=== PATIENT | female | born 1965 | race Caucasian/White ===

== ENCOUNTER → 2018-10-31 | Outpatient (CLI) | payer SELFPAY ==
[~2018-10-31] MED LIST: AUGMENTIN 875875 MG PO; AZO-STANDARD95 MG PO; BACTRIM DS 8001 TA1 PO; IBU800 M1 PO; LIPITOR10 MG PO; METFORMIN500 MG PO; NORVASC5 MG PO; PRINIVIL20 MG PO
== END | disposition home or self-care (01) ==
LOC: RESCLI 08:56
DX: I10 Essential (primary) hypertension (principal); E11.9 Type 2 diabetes mellitus without complications; E78.5 Hyperlipidemia, unspecified; F17.200 Nicotine dependence, unspecified, uncomplicated; Z71.6 Tobacco abuse counseling; Z79.84 Long term (current) use of oral hypoglycemic drugs; Z79.899 Other long term (current) drug therapy; Z91.018 Allergy to other foods

== ENCOUNTER → 2019-06-04 | Outpatient (CLI) | payer SELFPAY | END | disposition home or self-care (01) | LOC: RESCLI 01:35 | DX: E78.5 Hyperlipidemia, unspecified (principal); E11.9 Type 2 diabetes mellitus without complications; I10 Essential (primary) hypertension; F17.210 Nicotine dependence, cigarettes, uncomplicated; Z71.6 Tobacco abuse counseling; Z79.899 Other long term (current) drug therapy ==

== ENCOUNTER 2019-08-02 16:02 | Inpatient (IN) | payer SELFPAY ==
[~2019-08-02] VITALS: Ht 177.8 cm; Wt 87.5 kg
[~2019-08-02 16:02] MED LIST changes: -LIPITOR10 MG PO; +PRAVACHOL40 MG PO; -PRINIVIL20 MG PO; +ZESTORETIC 20-1 EAC1 PO
[2019-08-02 16:05] VITALS: BP 128/64
[2019-08-02 16:40] LABS: BASO % 0.2 % (0.0-1.0); EOS # 0.2 10*3/uL (0.0-0.4); EOS % 1.1 % (1.0-4.0); HEMOGLOBIN 14.4 g/dl (12.0-16.0); LYMPH # 2.4 10*3/uL (1.3-4.4); LYMPH % 18.1 % (27.0-41.0); MEAN CELL VOLUME 87.1 fl (81.0-99.0); MEAN CORPUSCULAR HGB 29.9 pg (27.0-31.0); MEAN CORPUSCULAR HGB CONC 34.3 g/dl (33.0-37.0); MEAN PLATELET VOLUME 9.6 fl (9.6-12.3); MONO # 0.8 10*3/uL (0.1-1.0); MONO % 6.4 % (3.0-9.0); NEUT # 9.7 10*3/uL (2.3-7.9); NEUT % 73.7 % (47.0-73.0); PLATELET COUNT AUTOMATED 267 10*3/uL (130-400); RED BLOOD COUNT 4.82 10*6/uL (4.10-5.10); RED CELL DISTRI WIDTH 12.3 % (0-14.5); WHITE BLOOD COUNT 13.2 10*3/uL (4.8-10.8)
[2019-08-02 16:58] LABS: ALBUMIN 3.7 gm/dl (3.1-4.5); CREATININE 1.4 mg/dL (0.55-1.02); POTASSIUM 3.3 mmol/L (3.5-5.1); TOTAL PROTEIN 7.8 gm/dL (6.4-8.2)
[2019-08-02 18:14] LABS: BILIRUBIN NEGATIVE (NEGATIVE); BLOOD 2+ (NEGATIVE); CLARITY SL CLOUDY (CLEAR); COLOR YELLOW (YELLOW); GLUCOSE NEGATIVE (NEGATIVE); KETONE NEGATIVE (NEGATIVE); LEUKO ESTERASE NEGATIVE (NEGATIVE); NITRITE NEGATIVE (NEGATIVE); PH 5.5 (5.0-9.0); UROBILINOGEN 0.2 E.U./dl (0.2-1.0)
[2019-08-02 18:29] LABS: BACTERIA 1+; WBC 0-2 wbc/hpf (0-5)
[2019-08-02 20:00] VITALS: BP 137/62
[2019-08-02 21:00] VITALS: BP 137/62
--- NOTE | 2019-08-02 21:00 | NUR ---
Time: 2099 A 54 year old FEMALE admitted to 5E under services of UTE PASCAL DO. Pt. arrived via bed from ER. Chief complaint: COLITIS. SERGIO CHEN
--- NOTE | 2019-08-02 22:26 | NUR ---
DR. STEVEN CALLED AWARE PT MEDICATIONS ARE UPDATED IN EMAR.
--- NOTE | 2019-08-02 22:30 | NUR ---
RESTING IN BED. TOLERATING IV ANTIBIOTIC AND ALSO IVF. NO C/O AT THIS TIME. CALL LIGHT IN REACH.
[2019-08-03] VITALS: BP 122/67
--- NOTE | 2019-08-03 00:30 | NUR ---
RESTING IN BED. NO C/O AT THIS TIME. IVF INFUSING WITH NO PROBLEM. CALL LIGHT IN REACH. SEE SHIFT ASSESSMENT.
--- NOTE | 2019-08-03 05:26 | NUR ---
PT C/O HEADACHE, RATES PAIN 5 OR 6 ON PAIN SCALE 0-10. MEDICATED WITH NORCO PO PER PRN ORDER, SEE EMAR. CALL LIGHT IN REACH. [id number].
--- NOTE | 2019-08-03 06:24 | NUR ---
PT RESTING IN BED WITH EYES CLOSED. RESP-EASY AND REGULAR. MEDICATION SEEMS TO BE EFFECTIVE. CALL LIGHT IN REACH.
[2019-08-03 06:25] LABS: BASO % 0.4 % (0.0-1.0); EOS # 0.2 10*3/uL (0.0-0.4); EOS % 1.8 % (1.0-4.0); HEMATOCRIT 38.2 % (37.0-47.0); HEMOGLOBIN 12.9 g/dl (12.0-16.0); LYMPH # 2.6 10*3/uL (1.3-4.4); LYMPH % 25.7 % (27.0-41.0); MEAN CORPUSCULAR HGB 30.1 pg (27.0-31.0); MEAN CORPUSCULAR HGB CONC 33.8 g/dl (33.0-37.0); MEAN PLATELET VOLUME 9.7 fl (9.6-12.3); MONO # 0.7 10*3/uL (0.1-1.0); MONO % 6.5 % (3.0-9.0); NEUT # 6.6 10*3/uL (2.3-7.9); NEUT % 65.1 % (47.0-73.0); PLATELET COUNT AUTOMATED 238 10*3/uL (130-400); RED BLOOD COUNT 4.29 10*6/uL (4.10-5.10); RED CELL DISTRI WIDTH 12.3 % (0-14.5); WHITE BLOOD COUNT 10.1 10*3/uL (4.8-10.8)
[2019-08-03 06:47] LABS: BUN 21 mg/dl (7-24); CHLORIDE 103 mmol/L (98-107); CREATININE 0.99 mg/dL (0.55-1.02); POTASSIUM 3.1 mmol/L (3.5-5.1); SODIUM 137 mmol/L (136-145)
[2019-08-03 08:00] VITALS: BP 100/60
--- NOTE | 2019-08-03 11:49 | NUR ---
BSG 227. REFUSED INSULIN COVERAGE
[2019-08-03 12:00] VITALS: BP 121/61
--- NOTE | 2019-08-03 12:13 | NUR ---
CALLED . INFORMED THAT MED REC WAS COMPLETED AND MEDS FROM HOME NEED RE-ORDERED. SAID HE WOULD LOOK.
--- NOTE | 2019-08-03 13:39 | NUR ---
GIVEN HOME MEDS. IN HIS POSSESSION AND WILL TAKE HOME TODAY. THERE ARE NO HOME MEDS IN PHARMACY.
--- NOTE | 2019-08-03 14:02 | NUR ---
TOLERATING SOFT FOODS WELL. DENIES ABD NAUSEA, CRAMPING, PAIN. WILL CONTINUE TO MONITOR.
[2019-08-03 16:00] VITALS: BP 124/69
--- NOTE | 2019-08-03 19:05 | NUR ---
ARRIVED ON SHIFT, INTRODUCED TO PATIENT BEDSIDE REPORT RECEIVED, NO NEEDS VOICED AT THIS TIME, WHITE BOARD UPDATED.
[2019-08-03 20:00] VITALS: BP 112/63
--- NOTE | 2019-08-03 23:11 | NUR ---
24 HR chart check completed.
[2019-08-04] VITALS: BP 135/73
--- NOTE | 2019-08-04 01:40 | NUR ---
Patient sleeping. Respirations relaxed and easy. Siderails up X 2, CALL LIGHT WITHIN REACH, BED IN LOW POSITION WITH [place] ON. JOSELUIS IGLESIAS
[2019-08-04 06:24] LABS: BUN 12 mg/dl (7-24); CHLORIDE 106 mmol/L (98-107); CREATININE 0.76 mg/dL (0.55-1.02); POTASSIUM 3.5 mmol/L (3.5-5.1); SODIUM 138 mmol/L (136-145)
[2019-08-04 08:00] VITALS: BP 160/88
[2019-08-04] MEDS ORDERED: FLAGYL500 MG PO (10:03)
[2019-08-04] MEDS ORDERED: CIPRO500 MG PO (10:03)
--- NOTE | 2019-08-04 10:34 | NUR ---
Discharge instructions reviewed with patient/family. Patient receptive and verbalizes understanding. Follow-up care arranged. Written instructions given to patient/family. NASIR FRANCISCO
== END 2019-08-04 12:02 | disposition home or self-care (01) | DRG 391 ==
LOC: ED 16:02 → EDHOLD 19:53 → 5E 20:24
PROVIDERS: Internal Medicine; Nurse Practitioner Family; ADMIT Family Medicine
DX: K52.9 Noninfective gastroenteritis and colitis, unspecified (principal); N17.0 Acute kidney failure with tubular necrosis; E87.1 Hypo-osmolality and hyponatremia; E11.9 Type 2 diabetes mellitus without complications; I10 Essential (primary) hypertension; D72.825 Bandemia; E87.6 Hypokalemia; K76.0 Fatty (change of) liver, not elsewhere classified; E11.65 Type 2 diabetes mellitus with hyperglycemia; E83.39 Other disorders of phosphorus metabolism; Z90.710 Acquired absence of both cervix and uterus; Z90.49 Acquired absence of other specified parts of digestive tract; Z90.89 Acquired absence of other organs; Z98.891 History of uterine scar from previous surgery; Z82.49 Family history of ischemic heart disease and other diseases of the circulatory system; Z79.899 Other long term (current) drug therapy; Z79.84 Long term (current) use of oral hypoglycemic drugs; Z83.3 Family history of diabetes mellitus

== ENCOUNTER → 2020-03-16 | Outpatient (CLI) | payer SELFPAY ==
[~2020-03-16] MED LIST changes: +CIPRO500 MG PO; +FLAGYL500 MG PO
== END | disposition home or self-care (01) ==
LOC: RESCLI 02:29
DX: I10 Essential (primary) hypertension (principal); K52.9 Noninfective gastroenteritis and colitis, unspecified; M79.89 Other specified soft tissue disorders; E11.9 Type 2 diabetes mellitus without complications; E78.5 Hyperlipidemia, unspecified; Z72.0 Tobacco use; Z79.84 Long term (current) use of oral hypoglycemic drugs; Z79.899 Other long term (current) drug therapy; Z90.710 Acquired absence of both cervix and uterus; Z90.49 Acquired absence of other specified parts of digestive tract; Z98.890 Other specified postprocedural states

== ENCOUNTER → 2020-03-22 | Outpatient (CLI) | payer SELFPAY ==
[2020-03-22 16:41] LABS: BASO % 0.4 % (0.0-1.0); EOS # 0.2 10*3/uL (0.0-0.4); EOS % 2.6 % (1.0-4.0); HEMATOCRIT 43.7 % (37.0-47.0); LYMPH # 1.8 10*3/uL (1.3-4.4); LYMPH % 25.9 % (27.0-41.0); MEAN CELL VOLUME 87.8 fl (81.0-99.0); MEAN CORPUSCULAR HGB 29.1 pg (27.0-31.0); MEAN CORPUSCULAR HGB CONC 33.2 g/dl (33.0-37.0); MEAN PLATELET VOLUME 10.5 fl (9.6-12.3); MONO # 0.5 10*3/uL (0.1-1.0); MONO % 7.2 % (3.0-9.0); NEUT # 4.5 10*3/uL (2.3-7.9); NEUT % 63.6 % (47.0-73.0); PLATELET COUNT AUTOMATED 265 10*3/uL (130-400); RED BLOOD COUNT 4.98 10*6/uL (4.10-5.10)
[2020-03-22 16:57] LABS: ALKALINE PHOSPHATASE 100 U/L (45-117); BUN 12 mg/dl (7-24); CHLORIDE 97 mmol/L (98-107); CHOLESTEROL 181 mg/dL (<200); CREATININE 0.97 mg/dL (0.55-1.02); HDL CHOLESTEROL 52 mg/dl (40-60); LDL CHOLESTEROL 82 mg/dL (9-159); POTASSIUM 4.1 mmol/L (3.5-5.1); SGOT/AST 89 IU/L (3-35); SGPT/ALT 50 U/L (12-78); SODIUM 133 mmol/L (136-145); TRIGLYCERIDES 235 mg/dl (<150); VLDL CHOLESTEROL 47 mg/dL (6-40)
[2020-03-22 17:23] LABS: VITAMIN D, 25-HYDROXY 14.2 ng/mL (30-100)
== END | disposition home or self-care (01) ==
LOC: LAB 15:27
PROVIDERS: Student in an Organized Health Care Education/Training Program
DX: K52.9 Noninfective gastroenteritis and colitis, unspecified (principal)

== ENCOUNTER → 2020-03-23 | Outpatient (CLI) | payer SELFPAY | END | disposition home or self-care (01) | LOC: CT 03:47 | DX: M79.89 Other specified soft tissue disorders (principal) ==

== ENCOUNTER → 2020-06-22 | Outpatient (CLI) | payer SELFPAY ==
[2020-06-23 11:11] LABS: CREATININE,URINE 65.8 mg/dL (Not Estab.)
== END | disposition home or self-care (01) ==
LOC: RESCLI 14:39
PROVIDERS: Internal Medicine; ATTEND Internal Medicine Nephrology
DX: E78.5 Hyperlipidemia, unspecified (principal); E11.9 Type 2 diabetes mellitus without complications; I10 Essential (primary) hypertension; E55.9 Vitamin D deficiency, unspecified; R11.0 Nausea; Z79.84 Long term (current) use of oral hypoglycemic drugs; Z79.899 Other long term (current) drug therapy; Z90.49 Acquired absence of other specified parts of digestive tract; Z98.890 Other specified postprocedural states; Z87.891 Personal history of nicotine dependence; Z91.018 Allergy to other foods

== ENCOUNTER → 2020-10-05 | Outpatient (CLI) | payer SELFPAY | END | disposition home or self-care (01) | LOC: RESCLI 00:16 | PROVIDERS: ATTEND Internal Medicine Nephrology | DX: I10 Essential (primary) hypertension (principal); E78.5 Hyperlipidemia, unspecified; R11.0 Nausea; E55.9 Vitamin D deficiency, unspecified; E11.65 Type 2 diabetes mellitus with hyperglycemia; Z79.899 Other long term (current) drug therapy; Z91.018 Allergy to other foods ==

== ENCOUNTER 2022-05-06 16:14 | Emergency (ER) | payer SELFPAY ==
[~2022-05-06] VITALS: Ht 177.8 cm; Wt 81.6 kg
[2022-05-06 16:39] LABS: BILIRUBIN Negative (Negative); BLOOD 2+ (Negative); CLARITY Turbid (Clear); COLOR Yellow (Yellow); GLUCOSE Negative (Negative); KETONE Negative (Negative); LEUKO ESTERASE 3+ (Negative); NITRITE Negative (Negative); PH 5.5 (4.5-8.0); UROBILINOGEN 0.2 E.U./dl (0.0-1.0)
[2022-05-06 16:48] LABS: WBC TNTC wbc/hpf (0-5)
[2022-05-06] MEDS ORDERED: MACROBID100 M1 PO (17:07)
== END 2022-05-06 17:08 | disposition home or self-care (01) ==
LOC: ED 16:14
PROVIDERS: Emergency Medicine
DX: N39.0 Urinary tract infection, site not specified (principal); E11.9 Type 2 diabetes mellitus without complications; Z79.899 Other long term (current) drug therapy; Z79.2 Long term (current) use of antibiotics; Z90.710 Acquired absence of both cervix and uterus; Z98.890 Other specified postprocedural states; Z90.49 Acquired absence of other specified parts of digestive tract; Z90.89 Acquired absence of other organs; Z87.891 Personal history of nicotine dependence

== ENCOUNTER 2024-05-31 03:49 | Inpatient (IN) | payer SELFPAY ==
[2024-05-31] VITALS (7 sets, daily range): BP systolic 100–126; BP diastolic 57–76
[~2024-05-31] VITALS: Ht 177.8 cm; Wt 79.8 kg
[~2024-05-31 03:49] MED LIST changes: +CEPHALEXIN500 M1 PO; +MACROBID100 M1 PO; +METFORMIN HYDR500 MG PO; -METFORMIN500 MG PO
[2024-05-31] MEDS ORDERED: SODIUM CHLORIDE 0.9% 1,000 ML IV ONE ×3 (04:00→19:10)
[2024-05-31] MEDS ORDERED: Ondansetron Hydrochloride 4 MG/2 ML VIAL IV ONE (04:05)
[2024-05-31 04:30] LABS: BASO % 0.2 % (0.0-1.0); EOS % 0.4 % (1.0-4.0); HEMATOCRIT 48.8 % (37.0-47.0); LYMPH # 1.1 10*3/uL (1.3-4.4); LYMPH % 11.1 % (27.0-41.0); MEAN CELL VOLUME 87.8 fl (81.0-99.0); MEAN CORPUSCULAR HGB 27.7 pg (27.0-31.0); MEAN CORPUSCULAR HGB CONC 31.6 g/dl (33.0-37.0); MEAN PLATELET VOLUME 9.8 fl (9.6-12.3); MONO # 0.8 10*3/uL (0.1-1.0); MONO % 7.8 % (3.0-9.0); NEUT # 8.1 10*3/uL (2.3-7.9); NEUT % 80.1 % (47.0-73.0); PLATELET COUNT AUTOMATED 189 10*3/uL (130-400); RED BLOOD COUNT 5.56 10*6/uL (4.10-5.10); RED CELL DISTRI WIDTH 13.1 % (0-14.5); WHITE BLOOD COUNT 10.1 10*3/uL (4.8-10.8)
[2024-05-31 04:47] LABS: POTASSIUM 3.2 mmol/L (3.4-5.1)
[2024-05-31 06:03] LABS: BILIRUBIN Negative (Negative); BLOOD 1+ (Negative); CLARITY Turbid (Clear); COLOR Dark Yellow (Yellow); GLUCOSE 3+ (Negative); KETONE 1+ (Negative); LEUKO ESTERASE 1+ (Negative); NITRITE Negative (Negative); SPECIFIC GRAVITY 1.025 (1.001-1.030)
[2024-05-31 06:17] LABS: BACTERIA 2+; EPITHELIAL CELLS TNTC; WBC 16-20 wbc/hpf (0-5)
[2024-05-31] MEDS ORDERED: MORPHINE Sulfate 2 MG/ML SYR IV ONE (06:40)
[2024-05-31] MEDS ORDERED: Ceftriaxone Sodium 1 GM/10 ML SYR IV ONE (06:40)
[2024-05-31] MEDS ORDERED: INVOKANA100 M1 PO (06:54)
[2024-05-31] MEDS ORDERED: CETIRIZINE10 MG PO (06:54)
[2024-05-31] MEDS ORDERED: LEVOTHYROXINE75 MCG PO (06:55)
[2024-05-31] MEDS ORDERED: ROSUVASTATIN CA10 MG PO (06:55)
[2024-05-31] MEDS ORDERED: PAXIL20 M1 PO (06:55)
[2024-05-31] MEDS ORDERED: LEVEMIR100 UNIT/1 SC ×2 (06:56→17:55)
[2024-05-31] MEDS ORDERED: Ondansetron Hydrochloride 4 MG/2 ML VIAL IV PRN (09:30)
[2024-05-31] MEDS ORDERED: BISACODYL 5 MG TAB PO PRN (09:30)
[2024-05-31] MEDS ORDERED: BISACODYL 10 MG SUPP R PRN (09:30)
[2024-05-31] MEDS ORDERED: Magnesium Hydroxide 30 ML UDC PO PRN (09:30)
[2024-05-31] MEDS ORDERED: ACETAMINOPHEN 325 MG TAB PO PRN (09:30)
[2024-05-31] MEDS ORDERED: MORPHINE Sulfate 2 MG/ML SYR IV PRN (09:30)
[2024-05-31] MEDS ORDERED: ACETAMINOPHEN 650 MG SUPP R PRN (09:30)
[2024-05-31] MEDS ORDERED: Acetaminophen/Oxycodone 5 MG/325 MG TABLET PO ONE (12:25)
[2024-05-31] MEDS ORDERED: Acetaminophen/Oxycodone 5 MG/325 MG TABLET PO PRN (12:30)
[2024-05-31] MEDS ORDERED: POTASSIUM CHLORIDE 20 MEQ TAB PO ONE ×3 (15:50→23:00)
[2024-05-31] MEDS ORDERED: DEXTROSE 10 % IN WATER 250 ML IV PRN (16:10)
[2024-05-31] MEDS ORDERED: INSULIN LISPRO 1 UNIT/0.01 ML SQ SCH (16:30)
[2024-05-31] MEDS ORDERED: HEPARIN SODIUM 5,000 UNIT/ML VIAL SC SCH (22:00)
[2024-06-01 02:10] VITALS: BP 111/53
[2024-06-01] MEDS ORDERED: METFORMIN HYDR500 MG PO (02:19)
[2024-06-01] MEDS ORDERED: Levothyroxine Sodium 75 MCG TAB PO SCH (06:00)
[2024-06-01 06:35] LABS: BASO % 0.2 % (0.0-1.0); EOS % 0.6 % (1.0-4.0); HEMATOCRIT 41.8 % (37.0-47.0); LYMPH # 1.5 10*3/uL (1.3-4.4); LYMPH % 27.7 % (27.0-41.0); MEAN CELL VOLUME 87.1 fl (81.0-99.0); MEAN CORPUSCULAR HGB 27.9 pg (27.0-31.0); MEAN CORPUSCULAR HGB CONC 32.1 g/dl (33.0-37.0); MEAN PLATELET VOLUME 10.6 fl (9.6-12.3); MONO # 0.6 10*3/uL (0.1-1.0); MONO % 11.7 % (3.0-9.0); NEUT # 3.2 10*3/uL (2.3-7.9); NEUT % 59.6 % (47.0-73.0); PLATELET COUNT AUTOMATED 177 10*3/uL (130-400); RED CELL DISTRI WIDTH 13.3 % (0-14.5); WHITE BLOOD COUNT 5.3 10*3/uL (4.8-10.8)
[2024-06-01 06:47] LABS: ALKALINE PHOSPHATASE 96 U/L (46-116); BUN 15 mg/dl (9-23); CHLORIDE 106 mmol/L (98-107); CHOLESTEROL 127 mg/dL (<200); LDL CHOLESTEROL 51 mg/dL (9-159); SGPT/ALT 27 U/L (5-49); TOTAL PROTEIN 6.6 gm/dL (6.0-8.0); TRIGLYCERIDES 160 mg/dl (<150)
[2024-06-01 08:00] VITALS: BP 147/65
[2024-06-01] MEDS ORDERED: Ceftriaxone Sodium 1 GM in SYRINGE INFUSION 10 ML IV SCH (08:00)
[2024-06-01 08:04] LABS: VITAMIN D, 25-HYDROXY 36.4 ng/mL (30-100)
[2024-06-01] MEDS ORDERED: amLODIPine besylate 5 MG TAB PO SCH (10:00)
[2024-06-01 12:00] VITALS: BP 129/72
[2024-06-01] MEDS ORDERED: HYDROCODONE-AC1 EAC1 PO (14:41)
[2024-06-01] MEDS ORDERED: Insulin Glargine, Recombinan 1 UNIT/0.01 ML SC SCH (22:00)
[2024-06-01] MEDS ORDERED: ATORVASTATIN CALCIUM 40 MG TABLET PO SCH (22:00)
== END 2024-06-01 15:15 | disposition home or self-care (01) | DRG 562 ==
LOC: ED 03:49 → EDHOLD 06:52 → 4E 06-01 01:23
PROVIDERS: Internal Medicine; Student in an Organized Health Care Education/Training Program; ADMIT Internal Medicine; ATTEND Internal Medicine
PROC: 2W3QX1Z Immobilization of Right Lower Leg using Splint (ICD-10-PCS; principal; 2024-05-31)
DX: S82.64XA Nondisplaced fracture of lateral malleolus of right fibula, initial encounter for closed fracture (principal); N17.0 Acute kidney failure with tubular necrosis; N39.0 Urinary tract infection, site not specified; E87.1 Hypo-osmolality and hyponatremia; E87.20 Acidosis, unspecified; T67.1XXA Heat syncope, initial encounter; E87.6 Hypokalemia; E86.0 Dehydration; X58.XXXA Exposure to other specified factors, initial encounter; I10 Essential (primary) hypertension; E11.36 Type 2 diabetes mellitus with diabetic cataract; K58.0 Irritable bowel syndrome with diarrhea; E11.65 Type 2 diabetes mellitus with hyperglycemia; I34.1 Nonrheumatic mitral (valve) prolapse; K22.70 Barrett's esophagus without dysplasia; Z79.4 Long term (current) use of insulin; Z90.710 Acquired absence of both cervix and uterus; Z98.891 History of uterine scar from previous surgery; Z90.49 Acquired absence of other specified parts of digestive tract; Z82.49 Family history of ischemic heart disease and other diseases of the circulatory system; Z79.84 Long term (current) use of oral hypoglycemic drugs; Z79.899 Other long term (current) drug therapy; Y93.89 Activity, other specified; Y92.89 Other specified places as the place of occurrence of the external cause; Y99.8 Other external cause status

== ENCOUNTER → 2024-06-14 | Outpatient (CLI) | payer SELFPAY ==
[~2024-06-14] MED LIST changes: +CETIRIZINE10 MG PO; +HYDROCODONE-AC1 EAC1 PO; +INVOKANA100 M1 PO; +LEVEMIR100 UNIT/1 SC; +LEVOTHYROXINE75 MCG PO; +PAXIL20 M1 PO; +ROSUVASTATIN CA10 MG PO
== END | disposition home or self-care (01) ==
LOC: ORTHO 08:32
PROVIDERS: ATTEND Orthopaedic Surgery
DX: S82.64XA Nondisplaced fracture of lateral malleolus of right fibula, initial encounter for closed fracture (principal); X58.XXXA Exposure to other specified factors, initial encounter; Y93.89 Activity, other specified; Y92.89 Other specified places as the place of occurrence of the external cause; Y99.8 Other external cause status

== ENCOUNTER → 2024-06-21 | Outpatient (CLI) | payer SELFPAY | END | disposition home or self-care (01) | LOC: ORTHO 01:58 | PROVIDERS: ATTEND Orthopaedic Surgery | DX: S82.64XA Nondisplaced fracture of lateral malleolus of right fibula, initial encounter for closed fracture (principal); X58.XXXA Exposure to other specified factors, initial encounter; Y93.89 Activity, other specified; Y92.89 Other specified places as the place of occurrence of the external cause; Y99.8 Other external cause status ==

== ENCOUNTER → 2024-07-17 | Outpatient (CLI) | payer SELFPAY | END | disposition home or self-care (01) | LOC: ORTHO 00:47 | PROVIDERS: ATTEND Orthopaedic Surgery | DX: S82.64XA Nondisplaced fracture of lateral malleolus of right fibula, initial encounter for closed fracture (principal); X58.XXXA Exposure to other specified factors, initial encounter; Y93.89 Activity, other specified; Y92.89 Other specified places as the place of occurrence of the external cause; Y99.8 Other external cause status ==

== ENCOUNTER → 2024-09-03 | Outpatient (CLI) | payer BC | END | disposition home or self-care (01) | LOC: MRI 01:59 | PROVIDERS: ATTEND Orthopaedic Surgery | DX: S82.451G Displaced comminuted fracture of shaft of right fibula, subsequent encounter for closed fracture with delayed healing (principal); S93.411D Sprain of calcaneofibular ligament of right ankle, subsequent encounter; M79.671 Pain in right foot; R60.0 Localized edema; X58.XXXD Exposure to other specified factors, subsequent encounter ==

== ENCOUNTER → 2024-12-26 | Day surgery (SDC) | payer BC ==
[2024-12-23 10:53] LABS: BUN 19 mg/dl (9-23); CHLORIDE 99 mmol/L (98-107); POTASSIUM 3.3 mmol/L (3.4-5.1)
[~2024-12-26] VITALS: Ht 177.8 cm; Wt 77.1 kg
== END | disposition home or self-care (01) ==
LOC: SDC 10-25 10:15
PROVIDERS: ATTEND Orthopaedic Surgery
DX: M76.71 Peroneal tendinitis, right leg (principal); Z53.8 Procedure and treatment not carried out for other reasons

== ENCOUNTER 2025-06-16 07:23 | Inpatient (IN) | payer BC ==
[2025-06-16] VITALS (12 sets, daily range): BP systolic 133–223; BP diastolic 65–114
[~2025-06-16] VITALS: Ht 178 cm; Wt 73.9 kg
[2025-06-16] MEDS ORDERED: FARXIGA10 M1 PO (07:34)
[2025-06-16] MEDS ORDERED: VITAMIN D3125 MCG PO (07:35)
[2025-06-16] MEDS ORDERED: LANTUS SOL100 UNIT/1 SC (07:36)
[2025-06-16] MEDS ORDERED: diphenhydrAMINE hydrochloride 50 MG/ML VIAL IV ONE (07:45)
[2025-06-16] MEDS ORDERED: SODIUM CHLORIDE 0.9% 1,000 ML IV ONE ×3 (07:45→09:55)
[2025-06-16] MEDS ORDERED: Metoclopramide Hydrochloride 10 MG/2 ML VIAL IV ONE (07:45)
[2025-06-16] MEDS ORDERED: Ondansetron Hydrochloride 4 MG/2 ML VIAL IV ONE (07:45)
[2025-06-16 08:09] LABS: BASO # 0.1 10*3/uL (0.0-0.1); BASO % 0.4 % (0.0-1.0); EOS # 0.0 10*3/uL (0.0-0.4); EOS % 0.1 % (1.0-4.0); MEAN CELL VOLUME 80.8 fl (81.0-99.0); MEAN CORPUSCULAR HGB 27.1 pg (27.0-31.0); MEAN PLATELET VOLUME 9.9 fl (9.6-12.3); MONO # 0.6 10*3/uL (0.1-1.0); MONO % 3.6 % (3.0-9.0); NEUT # 14.3 10*3/uL (2.3-7.9); NEUT % 85.9 % (47.0-73.0); NUCLEATED RED BLOOD CELL 0.0 % (0.0-0.0); NUCLEATED RED BLOOD CELL 0.0 10*3/uL (0.0-0.0); PLATELET COUNT AUTOMATED 325 10*3/uL (130-400); RED CELL DISTRI WIDTH 12.5 % (0-14.5)
[2025-06-16 08:22] LABS: BILIRUBIN Negative (Negative); BLOOD Trace-Lysed (Negative); CLARITY Clear (Clear); COLOR Yellow (Yellow); KETONE 4+ (Negative); LEUKO ESTERASE Negative (Negative); NITRITE Negative (Negative); PH 5.0 (4.5-8.0); SPECIFIC GRAVITY >= 1.030 (1.001-1.030); UROBILINOGEN 0.2 E.U./dl (0.0-1.0)
[2025-06-16 08:54] LABS: BUN 27.0 mg/dl (9-23); SGPT/ALT 19.0 U/L (5-49)
[2025-06-16 08:55] LABS: BACTERIA 2+; EPITHELIAL CELLS 21-30; RBC 16-20 rbc/hpf (0-2)
[2025-06-16] MEDS ORDERED: INSULIN REGULAR IN 0.9 % NACL 100 ML IV ONE (09:05)
[2025-06-16] MEDS ORDERED: Ondansetron Hydrochloride 4 MG/2 ML VIAL IV PRN (09:40)
[2025-06-16] MEDS ORDERED: BISACODYL 10 MG SUPP R PRN (09:40)
[2025-06-16] MEDS ORDERED: ACETAMINOPHEN 650 MG SUPP R PRN (09:40)
[2025-06-16] MEDS ORDERED: POTASSIUM CHLORIDE 20 MEQ/100 ML BAG IV PRN (09:55)
[2025-06-16] MEDS ORDERED: POTASSIUM CHLORIDE 20 MEQ TAB PO PRN (09:55)
[2025-06-16] MEDS ORDERED: DEXTROSE 50% 25 GM/50 ML VIAL IV PRN (09:55)
[2025-06-16] MEDS ORDERED: POTASSIUM CHLORIDE IN WATER 100 ML IV SCH (10:00)
[2025-06-16] MEDS ORDERED: Labetalol Hydrochloride 20 MG/4 ML SYR IV ONE ×3 (10:10→13:40)
[2025-06-16 10:25] LABS: ABG O2 SATURATION 97.2 % (94.0-98.0); ARTERIAL BLOOD GAS PH 7.316 (7.350-7.450); ARTERIAL BLOOD GAS PO2 107.7 mmHg (83.0-108.0)
[2025-06-16 10:30] LABS: ABG BASE EXCESS -9.9 mmol/L (-2.0-3.0)
[2025-06-16 11:55] LABS: BUN 25.0 mg/dl (9-23)
[2025-06-16] MEDS ORDERED: SODIUM CHLORIDE 0.9% 1,000 ML IV SCH (11:55)
[2025-06-16 13:03] LABS: BUN 19 mg/dl (9-23)
[2025-06-16] MEDS ORDERED: INSULIN REGULAR IN 0.9 % NACL 100 ML IV SCH (13:15)
[2025-06-16] MEDS ORDERED: POTASSIUM CL/0.9% SODIUM CL 1,000 ML IV SCH (13:15)
[2025-06-16] MEDS ORDERED: OZEMPIC0.25 MG/03 SQ (14:23)
[2025-06-16] MEDS ORDERED: LANTUS100 UNIT/1 SC (14:23)
[2025-06-16] MEDS ORDERED: VITAMIN D31250 MC2 PO (14:25)
[2025-06-16] MEDS ORDERED: ROSUVASTATIN-E1 EAC2 PO (14:27)
[2025-06-16 17:37] LABS: BUN 21.0 mg/dl (9-23)
[2025-06-16] MEDS ORDERED: POTASSIUM CL D5/.45NS SOL. 1,000 ML IV SCH (17:55)
[2025-06-16 21:26] LABS: BUN 24 mg/dl (9-23)
[2025-06-17] VITALS: BP 129/62
[2025-06-17 00:50] LABS: BUN 19 mg/dl (9-23)
[2025-06-17 04:00] VITALS: BP 155/77
[2025-06-17 04:20] LABS: BASO # 0.0 10*3/uL (0.0-0.1); BASO % 0.1 % (0.0-1.0); EOS # 0.0 10*3/uL (0.0-0.4); EOS % 0.1 % (1.0-4.0); MEAN CELL VOLUME 82.1 fl (81.0-99.0); MEAN CORPUSCULAR HGB 27.4 pg (27.0-31.0); MEAN PLATELET VOLUME 9.6 fl (9.6-12.3); MONO # 0.8 10*3/uL (0.1-1.0); MONO % 6.1 % (3.0-9.0); NEUT # 10.9 10*3/uL (2.3-7.9); NEUT % 79.3 % (47.0-73.0); NUCLEATED RED BLOOD CELL 0.0 % (0.0-0.0); NUCLEATED RED BLOOD CELL 0.0 10*3/uL (0.0-0.0); RED CELL DISTRI WIDTH 12.7 % (0-14.5)
[2025-06-17 04:23] LABS: PLATELET COUNT AUTOMATED 220 10*3/uL (130-400)
[2025-06-17 04:43] LABS: BUN 18 mg/dl (9-23)
[2025-06-17 04:48] LABS: BUN 19 mg/dl (9-23); FREE T4 1.13 ng/dl (0.89-1.76); LDL CHOLESTEROL 76 mg/dL (9-159); SGPT/ALT 11 U/L (5-49)
[2025-06-17 08:00] VITALS: BP 188/90
[2025-06-17 08:28] LABS: BUN 16 mg/dl (9-23)
[2025-06-17 09:00] LABS: VITAMIN D, 25-HYDROXY 52.5 ng/mL (30-100)
[2025-06-17] MEDS ORDERED: Insulin Glargine, Recombinan 1 UNIT/0.01 ML SC ONE (09:15)
[2025-06-17] MEDS ORDERED: ACETAMINOPHEN 325 MG TAB PO PRN (09:15)
[2025-06-17] MEDS ORDERED: hydroCHLOROthiazide 25 MG TAB PO SCH (10:00)
[2025-06-17] MEDS ORDERED: LISINOPRIL 20 MG TAB PO SCH (10:00)
[2025-06-17 12:00] VITALS: BP 111/47
[2025-06-17 12:27] LABS: BUN 12 mg/dl (9-23)
[2025-06-17 16:00] VITALS: BP 123/57
[2025-06-17] MEDS ORDERED: DEXTROSE 50% 25 GM/50 ML VIAL IV PRN (16:10)
[2025-06-17] MEDS ORDERED: INSULIN LISPRO 1 UNIT/0.01 ML SQ SCH (16:30)
[2025-06-17 17:07] LABS: BUN 11 mg/dl (9-23)
[2025-06-17 20:00] VITALS: BP 127/61
[2025-06-17] MEDS ORDERED: Insulin Glargine, Recombinan 1 UNIT/0.01 ML SC SCH (22:00)
[2025-06-18] VITALS: BP 156/75
[2025-06-18 06:22] LABS: BUN 10 mg/dl (9-23)
[2025-06-18 08:00] VITALS: BP 137/85
[2025-06-18 08:57] LABS: BASO # 0.0 10*3/uL (0.0-0.1); BASO % 0.3 % (0.0-1.0); EOS # 0.1 10*3/uL (0.0-0.4); EOS % 1.0 % (1.0-4.0); MEAN CELL VOLUME 82.2 fl (81.0-99.0); MEAN CORPUSCULAR HGB 27.1 pg (27.0-31.0); MEAN PLATELET VOLUME 9.2 fl (9.6-12.3); MONO # 0.6 10*3/uL (0.1-1.0); MONO % 5.7 % (3.0-9.0); NEUT # 7.4 10*3/uL (2.3-7.9); NEUT % 70.5 % (47.0-73.0); NUCLEATED RED BLOOD CELL 0.0 % (0.0-0.0); NUCLEATED RED BLOOD CELL 0.0 10*3/uL (0.0-0.0); PLATELET COUNT AUTOMATED 231 10*3/uL (130-400); RED CELL DISTRI WIDTH 12.5 % (0-14.5)
== END 2025-06-18 13:45 | disposition home or self-care (01) | DRG 871 ==
LOC: ED 07:23 → EDHOLD 09:15 → ICCU 09:15
PROVIDERS: Emergency Medicine; Student in an Organized Health Care Education/Training Program; ADMIT Student in an Organized Health Care Education/Training Program; ATTEND Student in an Organized Health Care Education/Training Program
DX: A41.9 Sepsis, unspecified organism (principal); E11.10 Type 2 diabetes mellitus with ketoacidosis without coma; N17.0 Acute kidney failure with tubular necrosis; N30.00 Acute cystitis without hematuria; I16.1 Hypertensive emergency; F33.9 Major depressive disorder, recurrent, unspecified; K58.0 Irritable bowel syndrome with diarrhea; I10 Essential (primary) hypertension; E78.2 Mixed hyperlipidemia; E03.9 Hypothyroidism, unspecified; R65.20 Severe sepsis without septic shock; R74.01 Elevation of levels of liver transaminase levels; D72.828 Other elevated white blood cell count; E86.0 Dehydration; E55.9 Vitamin D deficiency, unspecified; D75.1 Secondary polycythemia; Z90.710 Acquired absence of both cervix and uterus; Z90.49 Acquired absence of other specified parts of digestive tract; Z82.49 Family history of ischemic heart disease and other diseases of the circulatory system; Z91.018 Allergy to other foods; Z79.4 Long term (current) use of insulin

== ENCOUNTER 2025-06-28 17:38 | Inpatient (IN) | payer BC ==
[~2025-06-28] VITALS: Ht 167.6 cm; Wt 81.2 kg
[~2025-06-28 17:38] MED LIST changes: +FARXIGA10 M1 PO; +LANTUS SOL100 UNIT/1 SC; +LANTUS100 UNIT/1 SC; +OZEMPIC0.25 MG/03 SQ; +ROSUVASTATIN-E1 EAC2 PO; +VITAMIN D3125 MCG PO; +VITAMIN D31250 MC2 PO
[2025-06-28 17:45] VITALS: BP 168/91
[2025-06-28] MEDS ORDERED: Ondansetron Hydrochloride 4 MG/2 ML VIAL IV ONE ×2 (17:45→19:35)
[2025-06-28] MEDS ORDERED: SODIUM CHLORIDE 0.9% 1,000 ML IV ONE ×3 (17:45→19:15)
[2025-06-28 18:06] LABS: ABG O2 SATURATION 99.0 % (94.0-98.0); ARTERIAL BLOOD GAS PO2 110.5 mmHg (83.0-108.0)
[2025-06-28 18:07] LABS: ABG BASE EXCESS 4.6 mmol/L (-2.0-3.0)
[2025-06-28 18:09] LABS: ARTERIAL BLOOD GAS PH 7.787 (7.350-7.450)
[2025-06-28 18:25] LABS: MEAN CELL VOLUME 78.8 fl (81.0-99.0); MEAN CORPUSCULAR HGB 27.0 pg (27.0-31.0); MEAN PLATELET VOLUME 9.7 fl (9.6-12.3); NUCLEATED RED BLOOD CELL 0.0 % (0.0-0.0); NUCLEATED RED BLOOD CELL 0.0 10*3/uL (0.0-0.0); PLATELET COUNT AUTOMATED 375 10*3/uL (130-400); RED CELL DISTRI WIDTH 12.6 % (0-14.5)
[2025-06-28 18:37] LABS: MANUAL DIFF REFLEX YES
[2025-06-28 18:45] LABS: BUN 23.0 mg/dl (9-23)
[2025-06-28 18:51] LABS: PLATELET SUFFICIENCY NORMAL (NORMAL)
[2025-06-28 20:54] VITALS: BP 97/52
[2025-06-28] MEDS ORDERED: Ondansetron Hydrochloride 4 MG/2 ML VIAL IV PRN (20:55)
[2025-06-28] MEDS ORDERED: BISACODYL 10 MG SUPP R PRN (20:55)
[2025-06-28] MEDS ORDERED: ACETAMINOPHEN 325 MG TAB PO PRN (20:55)
[2025-06-28] MEDS ORDERED: ACETAMINOPHEN 650 MG SUPP R PRN (20:55)
[2025-06-28] MEDS ORDERED: TEMAZEPAM 15 MG CAP PO PRN (20:55)
[2025-06-28] MEDS ORDERED: BISACODYL 5 MG TAB PO PRN (20:55)
[2025-06-28] MEDS ORDERED: Acetaminophen/Hydrocodone 5 MG/325 MG TABLET PO PRN (20:55)
[2025-06-28 21:25] VITALS: BP 110/45
[2025-06-28 21:26] LABS: BILIRUBIN Negative (Negative); BLOOD Negative (Negative); CLARITY Clear (Clear); COLOR Yellow (Yellow); KETONE 1+ (Negative); LEUKO ESTERASE Trace (Negative); NITRITE Negative (Negative); PH 5.5 (4.5-8.0); SPECIFIC GRAVITY 1.020 (1.001-1.030); UROBILINOGEN 1.0 E.U./dl (0.0-1.0)
[2025-06-28 21:39] LABS: BACTERIA 1+; EPITHELIAL CELLS 16-20
[2025-06-28 21:40] LABS: WBC 16-20 wbc/hpf (0-5)
[2025-06-28 22:11] LABS: BUN 24.0 mg/dl (9-23)
[2025-06-28] MEDS ORDERED: HEPARIN SODIUM 250 ML IV SCH (22:15)
[2025-06-28 22:16] LABS: ABG BASE EXCESS -3.6 mmol/L (-2.0-3.0); ABG O2 SATURATION 94.9 % (94.0-98.0); ARTERIAL BLOOD GAS PH 7.375 (7.350-7.450); ARTERIAL BLOOD GAS PO2 81.4 mmHg (83.0-108.0)
[2025-06-28] MEDS ORDERED: DEXTROSE 50% 25 GM/50 ML VIAL IV PRN (22:35)
[2025-06-28] MEDS ORDERED: INSULIN REGULAR IN 0.9 % NACL 100 ML IV SCH (22:35)
[2025-06-28] MEDS ORDERED: POTASSIUM CHLORIDE 20 MEQ TAB PO PRN (22:35)
[2025-06-28] MEDS ORDERED: POTASSIUM CHLORIDE 20 MEQ/100 ML BAG IV PRN (22:35)
[2025-06-28] MEDS ORDERED: DEXTROSE 5% SALINE 0.45% 1,000 ML IV SCH (22:40)
[2025-06-29] VITALS: BP 110/45
[2025-06-29] MEDS ORDERED: Promethazine Hydrochloride 25 MG/ML VIAL IV PRN (01:15)
[2025-06-29 02:02] LABS: MEAN CELL VOLUME 80.7 fl (81.0-99.0); MEAN CORPUSCULAR HGB 26.9 pg (27.0-31.0); MEAN PLATELET VOLUME 9.8 fl (9.6-12.3); NUCLEATED RED BLOOD CELL 0.0 % (0.0-0.0); NUCLEATED RED BLOOD CELL 0.0 10*3/uL (0.0-0.0); PLATELET COUNT AUTOMATED 292 10*3/uL (130-400); RED CELL DISTRI WIDTH 12.6 % (0-14.5)
[2025-06-29 02:23] LABS: BUN 25.0 mg/dl (9-23)
[2025-06-29 02:40] LABS: MANUAL DIFF REFLEX YES
[2025-06-29 02:42] LABS: PLATELET SUFFICIENCY NORMAL (NORMAL)
[2025-06-29 04:00] VITALS: BP 112/53
[2025-06-29] MEDS ORDERED: POTASSIUM CHLORIDE 100 ML IV ONE (06:00)
[2025-06-29 06:32] LABS: BUN 22.0 mg/dl (9-23); SGPT/ALT 42.0 U/L (5-49)
[2025-06-29 08:00] VITALS: BP 152/78
[2025-06-29] MEDS ORDERED: POTASSIUM CL D5/.45NS SOL. 1,000 ML IV SCH (09:15)
[2025-06-29 11:03] LABS: BUN 20.0 mg/dl (9-23)
[2025-06-29 12:00] VITALS: BP 153/67
[2025-06-29] MEDS ORDERED: Insulin Glargine, Recombinan 1 UNIT/0.01 ML SC ONE (13:55)
[2025-06-29 14:22] LABS: BUN 18 mg/dl (9-23)
[2025-06-29] MEDS ORDERED: DEXTROSE 50% 25 GM/50 ML VIAL IV PRN (15:35)
[2025-06-29] MEDS ORDERED: DEXTROSE 10 % IN WATER 250 ML IV PRN (15:35)
[2025-06-29 16:00] VITALS: BP 143/75
[2025-06-29] MEDS ORDERED: INSULIN LISPRO 1 UNIT/0.01 ML SQ SCH (16:30)
[2025-06-29 18:23] LABS: BUN 15 mg/dl (9-23)
[2025-06-29] MEDS ORDERED: SODIUM CHLORIDE 0.9% 500 ML IV ONE (19:45)
[2025-06-29 20:00] VITALS: BP 152/73
[2025-06-30] VITALS: BP 144/68
[2025-06-30 04:00] VITALS: BP 160/80
[2025-06-30 05:55] LABS: BASO # 0.0 10*3/uL (0.0-0.1); BASO % 0.2 % (0.0-1.0); BUN 14 mg/dl (9-23); EOS # 0.0 10*3/uL (0.0-0.4); EOS % 0.1 % (1.0-4.0); MEAN CELL VOLUME 82.5 fl (81.0-99.0); MEAN CORPUSCULAR HGB 27.6 pg (27.0-31.0); MEAN PLATELET VOLUME 10.2 fl (9.6-12.3); MONO # 1.2 10*3/uL (0.1-1.0); MONO % 5.4 % (3.0-9.0); NEUT # 19.1 10*3/uL (2.3-7.9); NEUT % 86.9 % (47.0-73.0); NUCLEATED RED BLOOD CELL 0.0 % (0.0-0.0); NUCLEATED RED BLOOD CELL 0.0 10*3/uL (0.0-0.0); PLATELET COUNT AUTOMATED 210 10*3/uL (130-400); RED CELL DISTRI WIDTH 13.2 % (0-14.5)
[2025-06-30 08:00] VITALS: BP 142/61
[2025-06-30] MEDS ORDERED: PANTOPRAZOLE SODIUM IV SCH (10:00)
[2025-06-30] MEDS ORDERED: Pantoprazole Sodium 20 MG TAB PO ONE (10:10)
[2025-06-30 12:00] VITALS: BP 162/82
[2025-06-30] MEDS ORDERED: ATORVASTATIN CALCIUM 40 MG TABLET PO SCH (12:40)
[2025-06-30] MEDS ORDERED: Peg Electrolyte Lavage Solut 4,000 ML BOT PO ONE (15:10)
[2025-06-30 16:00] VITALS: BP 153/75
[2025-06-30] MEDS ORDERED: Pantoprazole Sodium 20 MG TAB PO SCH (18:00)
[2025-06-30 20:00] VITALS: BP 182/94
[2025-07-01] VITALS (9 sets, daily range): BP systolic 131–195; BP diastolic 64–96
[2025-07-01 06:33] LABS: MEAN CELL VOLUME 81.2 fl (81.0-99.0); MEAN CORPUSCULAR HGB 27.2 pg (27.0-31.0); MEAN PLATELET VOLUME 9.6 fl (9.6-12.3); NUCLEATED RED BLOOD CELL 0.0 % (0.0-0.0); NUCLEATED RED BLOOD CELL 0.0 10*3/uL (0.0-0.0); PLATELET COUNT AUTOMATED 187 10*3/uL (130-400); RED CELL DISTRI WIDTH 13.0 % (0-14.5)
[2025-07-01 06:36] LABS: MANUAL DIFF REFLEX YES
[2025-07-01 06:53] LABS: BUN 15 mg/dl (9-23)
[2025-07-01] MEDS ORDERED: POTASSIUM CHLORIDE 20 MEQ TAB PO ONE (07:35)
[2025-07-01 07:42] LABS: PLATELET SUFFICIENCY NORMAL (NORMAL)
[2025-07-01] MEDS ORDERED: EZETIMIBE 10 MG TAB PO SCH (10:00)
[2025-07-01] MEDS ORDERED: ASPIRIN ENTERIC COATED 81 MG TAB PO SCH (10:00)
[2025-07-01] MEDS ORDERED: ATORVASTATIN CALCIUM 10 MG TAB PO SCH (10:00)
[2025-07-01] MEDS ORDERED: PROPOFOL 200 MG/20 ML VIAL IV ONE (13:18)
[2025-07-01] MEDS ORDERED: Lidocaine Hydrochloride 5 ML VIAL IV ONE (13:18)
[2025-07-02] VITALS: BP 158/65
[2025-07-02 06:48] LABS: BASO # 0.0 10*3/uL (0.0-0.1); BASO % 0.4 % (0.0-1.0); EOS # 0.1 10*3/uL (0.0-0.4); EOS % 0.7 % (1.0-4.0); MEAN CELL VOLUME 81.7 fl (81.0-99.0); MEAN CORPUSCULAR HGB 27.1 pg (27.0-31.0); MEAN PLATELET VOLUME 9.5 fl (9.6-12.3); MONO # 0.6 10*3/uL (0.1-1.0); MONO % 5.9 % (3.0-9.0); NEUT # 8.8 10*3/uL (2.3-7.9); NEUT % 80.5 % (47.0-73.0); NUCLEATED RED BLOOD CELL 0.0 % (0.0-0.0); NUCLEATED RED BLOOD CELL 0.0 10*3/uL (0.0-0.0); PLATELET COUNT AUTOMATED 179 10*3/uL (130-400); RED CELL DISTRI WIDTH 12.6 % (0-14.5)
[2025-07-02 07:10] LABS: BUN 15 mg/dl (9-23)
[2025-07-02] MEDS ORDERED: POTASSIUM CHLORIDE 20 MEQ TAB PO ONE (07:35)
[2025-07-02 08:00] VITALS: BP 156/74
[2025-07-02] MEDS ORDERED: LISINOPRIL 20 MG TAB PO SCH (10:00)
[2025-07-02 12:00] VITALS: BP 140/63
[2025-07-02 16:00] VITALS: BP 121/67
[2025-07-02 20:00] VITALS: BP 111/53
[2025-07-02] MEDS ORDERED: Insulin Glargine, Recombinan 1 UNIT/0.01 ML SC SCH (22:00)
[2025-07-03] VITALS: BP 129/62
[2025-07-03 06:33] LABS: BUN 12 mg/dl (9-23)
[2025-07-03 06:46] LABS: BASO # 0.0 10*3/uL (0.0-0.1); BASO % 0.4 % (0.0-1.0); EOS # 0.1 10*3/uL (0.0-0.4); EOS % 1.3 % (1.0-4.0); MEAN CELL VOLUME 81.3 fl (81.0-99.0); MEAN CORPUSCULAR HGB 27.2 pg (27.0-31.0); MEAN PLATELET VOLUME 9.6 fl (9.6-12.3); MONO # 0.6 10*3/uL (0.1-1.0); MONO % 7.3 % (3.0-9.0); NEUT # 5.4 10*3/uL (2.3-7.9); NEUT % 64.8 % (47.0-73.0); NUCLEATED RED BLOOD CELL 0.0 % (0.0-0.0); NUCLEATED RED BLOOD CELL 0.0 10*3/uL (0.0-0.0); PLATELET COUNT AUTOMATED 187 10*3/uL (130-400); RED CELL DISTRI WIDTH 12.7 % (0-14.5)
[2025-07-03] MEDS ORDERED: IOHEXOL 350 MG/ML 100 ML VIAL IV ONE ×2 (07:55→08:17)
[2025-07-03] MEDS ORDERED: SODIUM CHLORIDE 0.9% 100 ML BAG IV ONE (07:55)
[2025-07-03 08:00] VITALS: BP 151/79
[2025-07-03] MEDS ORDERED: POTASSIUM CHLORIDE IN WATER 100 ML IV SCH (08:00)
[2025-07-03] MEDS ORDERED: SODIUM CHLORIDE 0.9% 100 ML IV ONE (08:17)
[2025-07-03 12:00] VITALS: BP 127/65
[2025-07-03 16:00] VITALS: BP 148/69
[2025-07-03 20:00] VITALS: BP 140/66
[2025-07-04 01:06] VITALS: BP 122/63
[2025-07-04 06:02] LABS: BASO # 0.0 10*3/uL (0.0-0.1); BASO % 0.6 % (0.0-1.0); EOS # 0.1 10*3/uL (0.0-0.4); EOS % 1.7 % (1.0-4.0); MEAN CELL VOLUME 81.8 fl (81.0-99.0); MEAN CORPUSCULAR HGB 27.1 pg (27.0-31.0); MEAN PLATELET VOLUME 9.3 fl (9.6-12.3); MONO # 0.6 10*3/uL (0.1-1.0); MONO % 8.6 % (3.0-9.0); NEUT # 4.2 10*3/uL (2.3-7.9); NEUT % 58.2 % (47.0-73.0); NUCLEATED RED BLOOD CELL 0.0 % (0.0-0.0); NUCLEATED RED BLOOD CELL 0.0 10*3/uL (0.0-0.0); PLATELET COUNT AUTOMATED 195 10*3/uL (130-400); RED CELL DISTRI WIDTH 12.5 % (0-14.5)
[2025-07-04 06:16] LABS: BUN 8 mg/dl (9-23)
[2025-07-04 08:00] VITALS: BP 156/81
[2025-07-04] MEDS ORDERED: POTASSIUM CHLORIDE 20 MEQ TAB PO ONE (08:55)
== END 2025-07-04 12:40 | disposition home or self-care (01) | DRG 871 ==
LOC: ED 17:38 → EDHOLD 19:42 → 4E 19:42 → ICCU 19:42 → 4E 06-30 15:05
PROVIDERS: Emergency Medicine; Internal Medicine; Student in an Organized Health Care Education/Training Program; ADMIT Internal Medicine; ATTEND Internal Medicine
PROC: 02HV33Z Insertion of Infusion Device into Superior Vena Cava, Percutaneous Approach (ICD-10-PCS; principal; 2025-06-28)
PROC: B548ZZA Ultrasonography of Superior Vena Cava, Guidance (ICD-10-PCS; 2025-06-28)
PROC: 0DBG8ZX Excision of Left Large Intestine, Via Natural or Artificial Opening Endoscopic, Diagnostic (ICD-10-PCS; 2025-07-01)
DX: A41.9 Sepsis, unspecified organism (principal); E11.10 Type 2 diabetes mellitus with ketoacidosis without coma; N17.0 Acute kidney failure with tubular necrosis; G93.41 Metabolic encephalopathy; I21.A1 Myocardial infarction type 2; N30.00 Acute cystitis without hematuria; E87.3 Alkalosis; K55.9 Vascular disorder of intestine, unspecified; K52.9 Noninfective gastroenteritis and colitis, unspecified; I10 Essential (primary) hypertension; E03.9 Hypothyroidism, unspecified; F32.9 Major depressive disorder, single episode, unspecified; E78.2 Mixed hyperlipidemia; E86.0 Dehydration; E87.6 Hypokalemia; E55.9 Vitamin D deficiency, unspecified; I72.3 Aneurysm of iliac artery; R65.20 Severe sepsis without septic shock; T68.XXXA Hypothermia, initial encounter; Z88.8 Allergy status to other drugs, medicaments and biological substances; Z91.018 Allergy to other foods; Z91.09 Other allergy status, other than to drugs and biological substances; Z79.899 Other long term (current) drug therapy; Z79.01 Long term (current) use of anticoagulants; Z79.2 Long term (current) use of antibiotics; Z79.4 Long term (current) use of insulin; Z90.710 Acquired absence of both cervix and uterus; Z98.891 History of uterine scar from previous surgery; Z90.49 Acquired absence of other specified parts of digestive tract; Z87.891 Personal history of nicotine dependence; Z82.49 Family history of ischemic heart disease and other diseases of the circulatory system; Z83.3 Family history of diabetes mellitus; X31.XXXA Exposure to excessive natural cold, initial encounter

== ENCOUNTER 2025-09-10 20:29 | Emergency (ER) | payer BC ==
[~2025-09-10] VITALS: Ht 177.8 cm; Wt 72.6 kg
[2025-09-10] MEDS ORDERED: Ondansetron Hydrochloride 4 MG TAB SL ONE (22:10)
[2025-09-10 22:26] LABS: BASO # 0.0 10*3/uL (0.0-0.1); BASO % 0.3 % (0.0-1.0); EOS # 0.0 10*3/uL (0.0-0.4); EOS % 0.3 % (1.0-4.0); MEAN CELL VOLUME 79.7 fl (81.0-99.0); MEAN CORPUSCULAR HGB 27.6 pg (27.0-31.0); MEAN PLATELET VOLUME 8.7 fl (9.6-12.3); MONO # 1.3 10*3/uL (0.1-1.0); MONO % 9.2 % (3.0-9.0); NEUT # 10.5 10*3/uL (2.3-7.9); NEUT % 73.6 % (47.0-73.0); NUCLEATED RED BLOOD CELL 0.0 % (0.0-0.0); NUCLEATED RED BLOOD CELL 0.0 10*3/uL (0.0-0.0); PLATELET COUNT AUTOMATED 309 10*3/uL (130-400); RED CELL DISTRI WIDTH 12.6 % (0-14.5)
[2025-09-10 22:43] LABS: BUN 28.0 mg/dl (9-23); SGPT/ALT 8.0 U/L (5-49)
[2025-09-10] MEDS ORDERED: Peg Electrolyte Lavage Solut 4,000 ML BOT PO ONE (23:45)
[2025-09-11] MEDS ORDERED: MAGNESIUM CITRATE 296 ML BOT PO ONE (00:30)
[2025-09-11 03:41] LABS: BASO # 0.0 10*3/uL (0.0-0.1); BASO % 0.2 % (0.0-1.0); EOS # 0.1 10*3/uL (0.0-0.4); EOS % 1.0 % (1.0-4.0); MEAN CELL VOLUME 79.7 fl (81.0-99.0); MEAN CORPUSCULAR HGB 27.3 pg (27.0-31.0); MEAN PLATELET VOLUME 8.6 fl (9.6-12.3); MONO # 1.2 10*3/uL (0.1-1.0); MONO % 10.1 % (3.0-9.0); NEUT # 8.1 10*3/uL (2.3-7.9); NEUT % 67.0 % (47.0-73.0); NUCLEATED RED BLOOD CELL 0.0 % (0.0-0.0); NUCLEATED RED BLOOD CELL 0.0 10*3/uL (0.0-0.0); PLATELET COUNT AUTOMATED 275 10*3/uL (130-400); RED CELL DISTRI WIDTH 12.6 % (0-14.5)
[2025-09-11 04:01] LABS: BUN 29 mg/dl (9-23)
[2025-09-11] MEDS ORDERED: Phenergan25 MG PO (04:23)
== END 2025-09-11 06:35 | disposition home or self-care (01) ==
LOC: ED 20:29
PROVIDERS: Internal Medicine
DX: B34.9 Viral infection, unspecified (principal); R10.84 Generalized abdominal pain; N17.9 Acute kidney failure, unspecified; E87.8 Other disorders of electrolyte and fluid balance, not elsewhere classified; D72.829 Elevated white blood cell count, unspecified; E11.65 Type 2 diabetes mellitus with hyperglycemia; I10 Essential (primary) hypertension; F17.210 Nicotine dependence, cigarettes, uncomplicated; Z98.890 Other specified postprocedural states; Z90.89 Acquired absence of other organs; Z90.49 Acquired absence of other specified parts of digestive tract; Z91.018 Allergy to other foods